=== PATIENT | male | born 1985 | race African-American/Black ===

== ENCOUNTER 2023-10-19 00:02 | Emergency (ER) | payer MEDICAID, OTHER ==
[~2023-10-19] VITALS: Ht 190.5 cm; Wt 109.0 kg
[2023-10-19 00:11] VITALS: BP 148/85; PULSE 67; RESP 20; TEMP 98.5; O2SAT 100
[2023-10-19] MEDS ORDERED: LIDOCAINE HCL/PF 1% 10 MG/ML 5ML VIAL INFIL ONE (02:15)
[2023-10-19] MEDS ORDERED: BACITRACIN ZINC OINT UDPKT TOP ONE (02:15)
[2023-10-19] MEDS ORDERED: CEPH500C2 MT (04:27)
== END 2023-10-19 04:57 | disposition home or self-care (01) ==
LOC: ER 00:20
DX: S01.511A Laceration without foreign body of lip, initial encounter (principal); Z88.2 Allergy status to sulfonamides; Z98.890 Other specified postprocedural states; X58.XXXA Exposure to other specified factors, initial encounter; Y93.89 Activity, other specified; Y92.89 Other specified places as the place of occurrence of the external cause; Y99.8 Other external cause status
CPT/HCPCS: 70450; 70486; 72125; 12011; 99284; J3490; Z7610